=== PATIENT | female | born 1970 | race American Indian/Alaskan Native ===

== ENCOUNTER 2019-06-22 02:50 | Emergency (ER) | payer SELFPAY ==
[2019-06-22] MEDS ORDERED: Clindamycin HCl 150 MG Cap PO ONE (03:41)
[2019-06-22] MEDS ORDERED: Lidocaine 2% Viscous Solution 15 ML Cup PO ONE (03:41)
--- NOTE | 2019-06-22 03:46 | EDM.PDOC ---
ED HPI GENERAL MEDICAL PROBLEM - General Chief Complaint: ENT Problem Stated Complaint: TOOTHACHE Time Seen by Provider: 06/22/19 03:38 Source of Information: Reports: Patient History Limitations: Reports: No Limitations - History of Present Illness INITIAL COMMENTS - FREE TEXT/NARRATIVE: This 48 yo female patient reports to the ED with right upper posterior dental pain. The patient reports her symptoms started about 1 week ago, but have gotten worse over the past 12 hours. The patient reports she has been taking Tylenol, but has not gotten any relief tonight. 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 [No Known Home Meds] 06/22/19 [History] ED ROS ENT - Review of Systems Review Of Systems: ROS reveals no pertinent complaints other than HPI. ED EXAM, ENT - Physical Exam Exam: See Below Exam Limited By: No Limitations General Appearance: Alert, WD/WN, Moderate Distress Eye Exam: Bilateral Eye: EOMI, Normal Inspection, PERRL Ears: Normal External Exam, Normal Canal, Hearing Grossly Normal, Normal TMs Nose: Normal Inspection, Normal Mucousa, No Blood Mouth/Throat: Dental Abcess, Dental Pain Head: Atraumatic, Normocephalic Neck: Normal Inspection, Supple, Non-Tender, Full Range of Motion Respiratory/Chest: No Respiratory Distress, Lungs Clear, Normal Breath Sounds, No Accessory Muscle Use, Chest Non-Tender Cardiovascular: Normal Peripheral Pulses, Regular Rate, Rhythm, No Edema, No Gallop, No JVD, No Murmur, No Rub GI/Abdominal: Normal Bowel Sounds, Soft, Non-Tender, No Organomegaly, No Distention, No Abnormal Bruit, No Mass (Female) Exam: Deferred Rectal (Female) Exam: Deferred Back: Normal Inspection, Full Range of Motion Extremities: Normal Inspection, Normal Range of Motion, Non-Tender, No Pedal Edema, Normal Capillary Refill Neurological: Alert, Oriented, CN II-XII Intact, Normal Cognition, Normal Gait, Normal Reflexes, No Motor/Sensory Deficits Psychiatric: Normal Affect, Normal Mood Skin: Warm, Dry, Intact, Normal Color, No Rash Lymphatic: No Adenopathy Course - Vital Signs Last Recorded V/S: Last Vital Signs Temp 36.2 C 06/22/19 03:33 Pulse 78 06/22/19 03:33 Resp 18 06/22/19 03:33 BP 161/90 H 06/22/19 03:33 Pulse Ox 98 06/22/19 03:33 - Orders/Labs/Meds Meds: Medications Discontinued Medications Generic Name Dose Route Start Last Admin Trade Name Elba PRN Reason Stop Dose Admin Clindamycin HCl 300 mg 06/22/19 03:41 Cleocin PO 06/22/19 03:42 ONETIME ONE Lidocaine HCl 15 ml 06/22/19 03:41 Xylocaine 2% Viscous PO 06/22/19 03:42 ONETIME ONE Departure - Departure Time of Disposition: 03:43 Disposition: Home, Self-Care 01 Condition: Fair Clinical Impression: Dental abscess, Dental caries extending into dentin - Discharge Information *PRESCRIPTION DRUG MONITORING PROGRAM REVIEWED*: Yes *COPY OF PRESCRIPTION DRUG MONITORING REPORT IN PATIENT DELTA: Not Applicable Instructions: Dental Abscess, [id number] Forms: ED Department Discharge Care Plan Goals: The patient was advised of the examination results during the visit. The patient was given a dose of Viscous Lidocaine and a dose of Clindamycin while in the ED. The patient was also given a script for Clindamycin (300 mg) to take 1 by mouth 4 times per day for 10 days and Viscous Lidocaine 2% #100 mL to use 5 -10 mL on a cottonball applied to area every 6 hours as needed. The patient was encouraged to follow-up with a dentist early this week for continued evaluation and further management. If the patient has any additional symptoms or concerns, the patient should either follow-up with her primary care facility or return to the emergency department.
== END 2019-06-22 04:03 | disposition home or self-care (01) ==
LOC: DL.ED 02:50
DX: K04.7 Periapical abscess without sinus (principal); K02.9 Dental caries, unspecified; Z88.8 Allergy status to other drugs, medicaments and biological substances
CPT/HCPCS: 99282; A9270

== ENCOUNTER 2019-07-11 16:46 | Emergency (ER) | payer MEDICAID ==
[2019-07-11] MEDS ORDERED: diphenhydrAMINE 50 MG Cap PO ONE (19:50)
--- NOTE | 2019-07-11 19:53 | EDM.PDOC ---
ED HPI GENERAL MEDICAL PROBLEM - General Chief Complaint: Skin Complaint Stated Complaint: SKIN IRRITATION L ARM/SHOULDER Time Seen by Provider: 07/11/19 19:50 Source of Information: Reports: Patient History Limitations: Reports: No Limitations - History of Present Illness INITIAL COMMENTS - FREE TEXT/NARRATIVE: c/o itchy rash on arms and shoulders while she was in her appt but it faded while waiting here. - Related Data Allergies Allergy/AdvReac Type Severity Reaction Status Date / Time allergra Allergy Anaphylactic Uncoded 07/11/19 17:23 Shock Home Meds: Home Meds . 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 Musculoskeletal History: Reports: None Neurological History: Reports: None Psychiatric History: Reports: None Endocrine/Metabolic History: Reports: None Hematologic History: Reports: None Immunologic History: Reports: None Oncologic (Cancer) History: Reports: None Dermatologic History: Reports: None - Infectious Disease History Infectious Disease History: Reports: None - Past Surgical History Head Surgeries/Procedures: Reports: None Social & Family History - Family History Family Medical History: Noncontributory - Tobacco Use Smoking Status *Q: Never Smoker Second Hand Smoke Exposure: No - Caffeine Use Caffeine Use: Reports: Soda - Recreational Drug Use Recreational Drug Use: No ED ROS GENERAL - Review of Systems Review Of Systems: ROS reveals no pertinent complaints other than HPI. ED EXAM, SKIN/RASH Exam: See Below Exam Limited By: No Limitations General Appearance: Alert, WD/WN, No Apparent Distress, Anxious Ears: Hearing Grossly Normal Throat/Mouth: Normal Voice, No Airway Compromise Head: Atraumatic Neck: Non-Tender, Full Range of Motion Respiratory/Chest: No Respiratory Distress Cardiovascular: Regular Rate, Rhythm GI/Abdominal: Soft, Non-Tender Neurological: Alert, Oriented, Normal Cognition, Normal Gait, No Motor/Sensory Deficits Psychiatric: Anxious Skin: Warm, Dry, Normal Color, Rash Location, Skin: Upper Extremity, Right, Upper Extremity, Left Characteristics: Maculopapular, Fine Associated features: No: Lymphangitis, Inflammation, Crusting Lymphatic: No Adenopathy Course - Vital Signs Last Recorded V/S: Last Vital Signs Temp 36.3 C 07/11/19 17:23 Pulse 86 07/11/19 17:23 Resp 12 07/11/19 17:23 BP 152/93 H 07/11/19 17:23 Pulse Ox 99 07/11/19 17:23 - Orders/Labs/Meds Orders: Active Orders 24 hr Category Date Time Status diphenhydrAMINE [Benadryl] Med 07/11/19 19:50 Once 50 mg PO ONETIME ONE Departure - Departure Time of Disposition: 19:52 Disposition: Home, Self-Care 01 Condition: Good Clinical Impression: Pruritic rash - Discharge Information Additional Instructions: 1) vacuum around the floor heater area 2) take benadryl for itch from [facility] 3) follow up at clinic - My Orders Last 24 Hours: My Active Orders 07/11/19 19:50 diphenhydrAMINE [Benadryl] 50 mg PO ONETIME ONE - Assessment/Plan Last 24 Hours: My Active Orders 07/11/19 19:50 diphenhydrAMINE [Benadryl] 50 mg PO ONETIME ONE
== END 2019-07-11 20:03 | disposition home or self-care (01) ==
LOC: DL.ED 16:46
DX: L29.9 Pruritus, unspecified (principal); Z88.8 Allergy status to other drugs, medicaments and biological substances
CPT/HCPCS: 99282; Q0163